=== PATIENT | male | born 1955 | race American Indian/Alaskan Native ===

== ENCOUNTER 2019-01-29 04:37 | Inpatient (IN) | payer BC, OTHER ==
[~2019-01-29 04:37] MED LIST: NORMODYNE IV ONE
[2019-01-29] MEDS ORDERED: NITRO-BID 2% TP ONE (04:50)
[2019-01-29] MEDS ORDERED: MORPHINE IV ONE (04:51)
[2019-01-29] MEDS ORDERED: PEPCID IV ONE (04:52)
[2019-01-29] MEDS ORDERED: ZOFRAN ONE (04:58)
--- NOTE | 2019-01-29 06:00 | XRay Report ---
PROCEDURE: XR CHEST 1V AP TECHNIQUE: A portable semiupright view of the chest was obtained. HISTORY: Chest Pain COMPARISONS: None FINDINGS: The heart is mildly enlarged. The lungs are not congested. There are no infiltrates or effusions. The skeletal structures are well-maintained. IMPRESSION: Cardiomegaly. No acute process in the chest.. This document is electronically signed by Kevin Rai MD., January 29 2019 05:58:07 AM ET
[2019-01-29 06:07] LABS: Basophils % (Auto) 0.4 % (0.0-1.8); Eosinophils # (Auto) 0.1 K/mm3 (0.0-0.4); Eosinophils % (Auto) 1.4 % (0.0-4.3); Hematocrit 38.7 % (35.5-45.6); Lymphocytes # (Auto) 1.2 K/mm3 (1.2-5.4); Lymphocytes % (Auto) 15.5 % (13.4-35.0); Mean Corpuscular HGB Conc 34 % (32-34); Mean Corpuscular Volume 81 fl (84-94); Monocytes # (Auto) 0.8 K/mm3 (0.0-0.8); Platelet Count 188 K/mm3 (140-440); Red Blood Count 4.79 M/mm3 (3.65-5.03); Red Cell Distribution Width 14.7 % (13.2-15.2)
[2019-01-29] MEDS ORDERED: NACL 0.9% 1000 ML 1,000 ML IV ONE (06:27)
[2019-01-29] MEDS ORDERED: ZOFRAN IV ONE ×2 (06:27→07:42)
[2019-01-29 06:29] LABS: Calcium 9.2 mg/dL (8.4-10.2)
[2019-01-29] MEDS ORDERED: BABY ASPIRIN PO ONE ×2 (06:30→07:47)
--- NOTE | 2019-01-29 06:30 | Emergency Department Report ---
ED General Adult HPI - General Chief complaint: Chest Pain Stated complaint: CHEST PAIN Time Seen by Provider: 01/29/19 06:18 Source: patient, EMS Mode of arrival: Stretcher Limitations: No Limitations - History of Present Illness Initial comments: Patient complains of left-sided nonradiating chest pain that awakened him from his sleep at 3 AM this morning. Patient also complains of nausea and vomiting. -: Sudden Location: chest Radiation: non-radiation Severity scale (0 -10): 6 Quality: dull Consistency: constant Improves with: none Worsens with: none Associated Symptoms: nausea/vomiting Treatments Prior to Arrival: none - Related Data Previous Rx's Medication Instructions Recorded Last Taken Type Ciprofloxacin HCl [Ciprofloxacin 500 mg PO BID #20 tablet 05/23/15 Unknown Rx TAB] metroNIDAZOLE [Flagyl] 500 mg PO BID #20 tablet 05/23/15 Unknown Rx oxyCODONE /ACETAMINOPHEN [Percocet 1 tab PO Q6HR PRN #20 tablet 05/23/15 Unknown Rx 5/325 mg] Allergies Allergy/AdvReac Type Severity Reaction Status Date / Time No Known Allergies Allergy Unverified 05/23/15 16:14 ED Review of Systems ROS: Stated complaint: CHEST PAIN Other details as noted in HPI Comment: All other systems reviewed and negative Constitutional: denies: chills, fever Eyes: denies: eye pain, eye discharge, vision change ENT: denies: ear pain, throat pain Respiratory: denies: cough, shortness of breath, wheezing Cardiovascular: chest pain. denies: palpitations Endocrine: no symptoms reported Gastrointestinal: nausea, vomiting. denies: abdominal pain, diarrhea Genitourinary: denies: urgency, dysuria Musculoskeletal: denies: back pain, joint swelling, arthralgia Skin: denies: rash, lesions Neurological: denies: headache, weakness, paresthesias Psychiatric: denies: anxiety, depression Hematological/Lymphatic: denies: easy bleeding, easy bruising ED Past Medical Hx - Past Medical History Previous Medical History?: Yes Hx Hypertension: Yes - Surgical History Past Surgical History?: Yes Additional Surgical History: colonoscopy 05/22/15 - Social History Smoking Status: Never Smoker Substance Use Type: None - Medications Home Medications: Home Medications Medication Instructions Recorded Confirmed Last Taken Type Ciprofloxacin HCl [Ciprofloxacin 500 mg PO BID #20 tablet 05/23/15 Unknown Rx TAB] metroNIDAZOLE [Flagyl] 500 mg PO BID #20 tablet 05/23/15 Unknown Rx oxyCODONE /ACETAMINOPHEN [Percocet 1 tab PO Q6HR PRN #20 tablet 05/23/15 Un known Rx 5/325 mg] ED Physical Exam - General Limitations: No Limitations General appearance: alert, in no apparent distress - Head Head exam: Present: atraumatic, normocephalic - Eye Eye exam: Present: normal appearance, PERRL, EOMI - ENT ENT exam: Present: mucous membranes dry - Neck Neck exam: Present: normal inspection - Respiratory Respiratory exam: Present: normal lung sounds bilaterally. Absent: respiratory distress, wheezes, rales, rhonchi - Cardiovascular Cardiovascular Exam: Present: regular rate, normal rhythm. Absent: systolic murmur, diastolic murmur, rubs, gallop - GI/Abdominal GI/Abdominal exam: Present: soft, normal bowel sounds. Absent: distended, tenderness - Rectal Rectal exam: Present: deferred - Extremities Exam Extremities exam: Present: normal inspection - Back Exam Back exam: Present: normal inspection - Neurological Exam Neurological exam: Present: alert, oriented X3, CN II-XII intact. Absent: motor sensory deficit - Psychiatric Psychiatric exam: Present: normal affect, normal mood - Skin Skin exam: Present: warm, dry, intact, normal color. Absent: rash ED Course Vital Signs 01/29/19 01/29/19 01/29/19 04:43 04:50 05:35 Temperature 98.0 F 98.0 F Pulse Rate 78 78 Respiratory 15 15 13 Rate Blood Pressure 118/79 Blood Pressure 118/79 [Right] O2 Sat by Pulse 99 100 98 Oximetry 01/29/19 01/29/19 01/29/19 06:27 07:00 07:16 Temperature Pulse Rate 70 73 Respiratory 15 15 13 Rate Blood Pressure 133/100 137/91 Blood Pressure 123/95 [Right] O2 Sat by Pulse 98 98 98 Oximetry ED Medical Decision Making - Lab Data Result diagrams: 01/29/19 05:48 01/29/19 05:48 Lab Results 01/29/19 01/29/19 01/29/19 Range/Units 05:48 05:48 05:48 WBC 7.5 (4.5-11.0) K/mm3 RBC 4.79 (3.65-5.03) M/mm3 Hgb 13.0 (11.8-15.2) gm/dl Hct 38.7 (35.5-45.6) % MCV 81 L (84-94) fl MCH 27 L (28-32) pg MCHC 34 (32-34) % RDW 14.7 (13.2-15.2) % Plt Count 188 (140-440) K/mm3 Lymph % (Auto) 15.5 (13.4-35.0) % [place] % (Auto) 10.0 H (0.0-7.3) % Eos % (Auto) 1.4 (0.0-4.3) % Baso % (Auto) 0.4 (0.0-1.8) % Lymph # 1.2 (1.2-5.4) K/mm3 [place] # 0.8 (0.0-0.8) K/mm3 Eos # 0.1 (0.0-0.4) K/mm3 Baso # 0.0 (0.0-0.1) K/mm3 Seg Neutrophils % 72.7 H (40.0-70.0) % Seg Neutrophils # 5.5 (1.8-7.7) K/mm3 Sodium 140 (137-145) mmol/L Potassium 3.5 L (3.6-5.0) mmol/L Chloride 103.7 (98-107) mmol/L Carbon Dioxide 24 (22-30) mmol/L Anion Gap 16 mmol/L BUN 16 (9-20) mg/dL Creatinine 1.5 (0.8-1.5) mg/dL Estimated GFR 57 ml/min BUN/Creatinine Ratio 11 % Glucose 141 H (75-100) mg/dL Calcium 9.2 (8.4-10.2) mg/dL Troponin T 0.042 H (0.00-0.029) ng/mL NT-Pro-B Natriuret Pep 139.7 (0-900) pg/mL Triglycerides 83 (2-149) mg/dL Cholesterol 154 (50-199) mg/dL LDL Cholesterol Direct 114 (50-130) mg/dL HDL Cholesterol 41 (40-59) mg/dL Cholesterol/HDL Ratio 3.75 % 01/29/19 01/29/19 Range/Units 06:56 06:56 WBC (4.5-11.0) K/mm3 RBC (3.65-5.03) M/mm3 Hgb 12.6 (11.8-15.2) gm/dl Hct 38.0 (35.5-45.6) % MCV (84-94) fl MCH (28-32) pg MCHC (32-34) % RDW (13.2-15.2) % Plt Count 191 (140-440) K/mm3 Lymph % (Auto) (13.4-35.0) % [place] % (Auto) (0.0-7.3) % Eos % (Auto) (0.0-4.3) % Baso % (Auto) (0.0-1.8) % Lymph # (1.2-5.4) K/mm3 [place] # (0.0-0.8) K/mm3 Eos # (0.0-0.4) K/mm3 Baso # (0.0-0.1) K/mm3 Seg Neutrophils % (40.0-70.0) % Seg Neutrophils # (1.8-7.7) K/mm3 Sodium (137-145) mmol/L Potassium (3.6-5.0) mmol/L Chloride (98-107) mmol/L Carbon Dioxide (22-30) mmol/L Anion Gap mmol/L BUN (9-20) mg/dL Creatinine (0.8-1.5) mg/dL Estimated GFR ml/min BUN/Creatinine Ratio % Glucose (75-100) mg/dL Calcium (8.4-10.2) mg/dL Troponin T (0.00-0.029) ng/mL NT-Pro-B Natriuret Pep 109.3 (0-900) pg/mL Triglycerides (2-149) mg/dL Cholesterol (50-199) mg/dL LDL Cholesterol Direct (50-130) mg/dL HDL Cholesterol (40-59) mg/dL Cholesterol/HDL Ratio % - EKG Data -: EKG Interpreted by Me EKG shows normal: sinus rhythm Rate: normal - Radiology Data Radiology results: report reviewed - Medical Decision Making Condition initially had a Nitropatch on IV nitroglycerin and heparin started Discussed results and plan with patient Critical Care Time: Yes Critical care time in (mins) excluding proc time.: 35 Critical care attestation.: If time is entered above; I have spent that time in minutes in the direct care of this critically ill patient, excluding procedure time. ED Disposition Clinical Impression: Chest pain, NSTEMI (non-ST elevated myocardial infarction) Disposition: DC-09 OP ADMIT IP TO THIS HOSP Is pt being admited?: No Does the pt Need Aspirin: Yes Condition: Fair Instructions: Chest Pain (ED) Referrals: CARLIN MENDOZA MD [Primary Care Provider] - 3-5 Days
[2019-01-29] MEDS ORDERED: NITROSTAT SL PRN ×2 (06:38→12:03)
[2019-01-29] MEDS ORDERED: TRIDIL DRIP 50MG/250ML 50 MG/250 ML BOTTLE IV SCH (07:00)
[2019-01-29] MEDS ORDERED: HEPARIN/ 0.45% NACL-25,000 UNIT/500 ML 25,000 UNIT/500 ML BAG IV SCH (07:00)
[2019-01-29 07:05] LABS: Chol/HDL Ratio 3.75 %
[2019-01-29 07:39] LABS: Hemoglobin 12.6 gm/dl (11.8-15.2)
[2019-01-29] MEDS ORDERED: PROTONIX IV ONE ×2 (07:39→07:42)
[2019-01-29 07:45] LABS: INR 1.04 (0.87-1.13)
[2019-01-29 07:46] LABS: Partial Thromboplastin Time 27.5 Sec. (24.2-36.6)
[2019-01-29] MEDS ORDERED: TYLENOL PO PRN (08:38)
[2019-01-29] MEDS ORDERED: REGLAN IV PRN (08:38)
[2019-01-29] MEDS: KCL 10MEQ/100ML 10 MEQ/100 ML BAG IV SCH ×2 (09:08→13:18)
[2019-01-29] MEDS: PROTONIX IV SCH ×2 (10:59→23:24)
[2019-01-29] MEDS: ZOFRAN IV PRN ×2 (11:00→21:58)
--- NOTE | 2019-01-29 12:02 | Progress Note ---
Assessment and Plan Assessment and plan: Patient is a 63 yo man with a history of hypertension, dyslipidemia and elevated liver enzymes in the past who was admitted for chest pains with positive troponin. He was seen by Cardiology and scheduled for Cardiac cath on Wednesday but overnight he developed hypoxia, severe SOB and worsening CP. CTA chest showed Type B Aortic Dissection. pCXR no acute findings EKG reviewed -Chest pains with Aortic Dissection: see below -Dyslipidemia, LDL 114: treat with statin -Hypokalmia: replete and monitor closely -Epigastric abd/N/V, suspected related to CP vs Gastritis/GERD: treat with PPI -Suspected ARF, due to vasomotor nephropathy, Cr is 1.5 now, but in 2014 Cr was 0.8 (05/23/15): treat with gentle hydration and monitor bmp closely -History of elevated transaminitis: check hepatic panel -DVT/GI prophylaxis reviewed -Home rec reviewed with patient not accurate in EMR, pt is on norvasc, coreg, simvastatin 01/30/19: Overnight was very eventful as patient became severely SOB with worsening CP. CODE MET was called around 3am. 02 SAT IN THE 80'S. 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 Cardiomegaly. Pulmonary vascular congestion with small right-sided effusion. Small pericardial effusion. No evidence of pulmonary embolus. The findings were discussed with Dr. Boo at 5:51 AM on 01/30/2019 Disposition: [facility] CONTACTED AT 7:16 A.M AND CARDIO THORACIC SURGEON DR. SPENCE SAID THAT CASE WILL BE BETTER MANAGED AT [facility]. DR. MONTGOMERY OF [facility] WAS CONTACTED AT 7.38A.M AND ACCEPTED TRANSFER TO [facility]. PATIENT AWAITING TRANSFER D/W attending for ICU at [place] D/w Cardiology currently on Vmask 50%, pulse ox 95% Someone stopped my iv labetalol order, will transfer to ICU on Labetalol drip Disposition to [facility], awaiting transport. CCT 35 minutes History Interval history: Patient was seen and examined. Follow-up on current diagnosis Chest pains/n/v. Overnight was very eventful as patient became severely SOB with worsening CP. CODE MET was called around 3am. Soft Water Mechanic evaluated and ordered d-dimer and CTA chest which should the following: CTA chest IMPRESSION: Dm type B aortic dissection beginning just beyond the origin of the left subclavian artery and extending to the mid thoracic aorta level.. Cardiomegaly. Pulmonary vascular congestion with small right-sided effusion. Small pericardial effusion. No evidence of pulmonary embolus. The findings were discussed with Dr. Boo at 5:51 AM on 01/30/2019. Patient went to Cardiac laborer wood preserving plant this morning and I went down to bring back. Hospitalist Physical - Physical exam Narrative exam: Gen: WDWN, NAD, Awake, Alert, Orientated HEENT: NCAT, EOMI, PERRL, OP Clear Neck: supple, no adenopathy, no thyromegaly, no JVD CVS/Heart: RRR, normal S1S2, pulses present bilaterally Chest/Lungs: CTA B, Symmetrical chest expansion, good air entry bilaterally GI/Abdomen: soft, NTND, good bowel sounds, no guarding or rebound /Bladder: no suprapubic tenderness, no CVA or paraspinal tenderness Extermity/Skin: no c/c/e, no obvious rash MSK: FROM x 4 Neuro: CN 2-12 grossly intact, no new focal deficits Psych: calm - Constitutional Vitals: Temp Pulse Resp BP Pulse Ox 98.0 F 84 20 155/101 90 01/29/19 04:50 01/29/19 09:00 01/29/19 09:00 01/29/19 09:00 01/29/19 08:46 Results - Labs CBC & Chem 7: 01/29/19 06:56 01/29/19 05:48 Labs: Laboratory Last Values WBC 7.5 K/mm3 (4.5-11.0) 01/29/19 05:48 RBC 4.79 M/mm3 (3.65-5.03) 01/29/19 05:48 Hgb 12.6 gm/dl (11.8-15.2) 01/29/19 06:56 Hct 38.0 % (35.5-45.6) 01/29/19 06:56 MCV 81 fl (84-94) L 01/29/19 05:48 MCH 27 pg (28-32) L 01/29/19 05:48 MCHC 34 % (32-34) 01/29/19 05:48 RDW 14.7 % (13.2-15.2) 01/29/19 05:48 Plt Count 191 K/mm3 (140-440) 01/29/19 06:56 Lymph % (Auto) 15.5 % (13.4-35.0) 01/29/19 05:48 [place] % (Auto) 10.0 % (0.0-7.3) H 01/29/19 05:48 Eos % (Auto) 1.4 % (0.0-4.3) 01/29/19 05:48 Baso % (Auto) 0.4 % (0.0-1.8) 01/29/19 05:48 Lymph # 1.2 K/mm3 (1.2-5.4) 01/29/19 05:48 [place] # 0.8 K/mm3 (0.0-0.8) 01/29/19 05:48 Eos # 0.1 K/mm3 (0.0-0.4) 01/29/19 05:48 Baso # 0.0 K/mm3 (0.0-0.1) 01/29/19 05:48 Seg Neutrophils % 72.7 % (40.0-70.0) H 01/29/19 05:48 Seg Neutrophils # 5.5 K/mm3 (1.8-7.7) 01/29/19 05:48 PT 14.2 Sec. (12.2-14.9) 01/29/19 06:56 INR 1.04 (0.87-1.13) 01/29/19 06:56 APTT 27.5 Sec. (24.2-36.6) 01/29/19 06:56 Sodium 140 mmol/L (137-145) 01/29/19 05:48 Potassium 3.5 mmol/L (3.6-5.0) L 01/29/19 05:48 Chloride 103.7 mmol/L (98-107) 01/29/19 05:48 Carbon Dioxide 24 mmol/L (22-30) 01/29/19 05:48 Anion Gap 16 mmol/L 01/29/19 05:48 BUN 16 mg/dL (9-20) 01/29/19 05:48 Creatinine 1.5 mg/dL (0.8-1.5) 01/29/19 05:48 Estimated GFR 57 ml/min 01/29/19 05:48 BUN/Creatinine Ratio 11 % 01/29/19 05:48 Glucose 141 mg/dL (75-100) H 01/29/19 05:48 Calcium 9.2 mg/dL (8.4-10.2) 01/29/19 05:48 Troponin T 0.042 ng/mL (0.00-0.029) H 01/29/19 05:48 NT-Pro-B Natriuret Pep 109.3 pg/mL (0-900) 01/29/19 06:56 Triglycerides 83 mg/dL (2-149) 01/29/19 05:48 Cholesterol 154 mg/dL (50-199) 01/29/19 05:48 LDL Cholesterol Direct 114 mg/dL (50-130) 01/29/19 05:48 HDL Cholesterol 41 mg/dL (40-59) 01/29/19 05:48 Cholesterol/HDL Ratio 3.75 % 01/29/19 05:48
--- NOTE | 2019-01-29 12:10 | History and Physical Report ---
History of Present Illness Date of examination: 01/29/19 Date of admission: 01/29/19 09:19 Chief complaint: Chest pains History of present illness: Patient is a 63 yo man with a history of hypertension and elevated liver enzymes in the past who presents to PSYCHIATRIC ED with Nonradiating dull constant moderately severe chest pains that woke him up this morning at 3am without aggravating or relieving factors associated with N/V. He denies SOB, cough, fevers, chills. He does have epigastric abd pains. He is being admitted for chest pains with positive troponins. PMH: as hpi PSH: c-scopy procedure for rectal bleed SH: no tob/etoh/illegal drug FH: hypertension ROS: Constitutional: denies: fever ENT: denies: throat or neck pain Respiratory: denies: cough, shortness of breath Cardiovascular: + chest pain Endocrine: denies unexplained weight loss or gain Gastrointestinal: +abdominal pain, nausea Genitourinary: denies: dysuria Rectal: denies no incontinence, no bleeding, no itching, no discharge Musculoskeletal: denies swelling, myaglia, muscle weakness Skin: denies: rash Neurological: denies: headache Hematological/Lymphatic: denies: easy bleeding or easy bruising Allergic/Immunologic: no urticaria, no allergic rhinitis, no anaphylaxis Psych: denies sadness or hopelessness, SI/HI Medications and Allergies Allergies Allergy/AdvReac Type Severity Reaction Status Date / Time No Known Allergies Allergy Unverified 05/23/15 16:14 Home Medications Medication Instructions Recorded Confirmed Last Taken Type amLODIPine [Norvasc] 10 mg PO DAILY 01/29/19 01/29/19 01/28/19 History Active Meds: Active Medications Acetaminophen (Tylenol) 650 mg PO Q6H PRN PRN Reason: Non Cardiac Pain or Temp>100.5 Aspirin (Baby Aspirin) 81 mg PO QDAY BAUTISTA Atorvastatin Calcium (Lipitor) 80 mg PO QHS BAUTISTA Carvedilol (Coreg) 6.25 mg PO BID BAUTISTA Heparin Sodium/Sodium Chloride (Heparin/ 0.45% Nacl-25,000 Unit/500 Ml) 25,000 unit in 500 mls @ 20 mls/hr IV TITRATE BAUTISTA; Protocol Last Admin: 01/29/19 07:19 Dose: 1,000 units/hr, 20 mls/hr Documented by: Metoclopramide HCl (Reglan) 10 mg IV Q8H PRN PRN Reason: Nausea And Vomiting Nitroglycerin (Nitrostat) 0.4 mg SL .Q5MIN PRN PRN Reason: Chest Pain Ondansetron HCl (Zofran) 4 mg IV Q4H PRN PRN Reason: Nausea And Vomiting Last Admin: 01/29/19 11:00 Dose: 4 mg Documented by: Pantoprazole Sodium (Protonix) 40 mg IV BID BAUTISTA Last Admin: 01/29/19 10:59 Dose: 40 mg Documented by: Exam - Physical Exam Narrative exam: Gen: WDWN, NAD, Awake, Alert, Orientated HEENT: NCAT, EOMI, PERRL, OP Clear Neck: supple, no adenopathy, no thyromegaly, no JVD CVS/Heart: RRR, normal S1S2, pulses present bilaterally Chest/Lungs: CTA B, Symmetrical chest expansion, good air entry bilaterally GI/Abdomen: soft, epigastic tenderness, good bowel sounds, no guarding or rebound /Bladder: no suprapubic tenderness, no CVA or paraspinal tenderness Extermity/Skin: no c/c/e, no obvious rash MSK: FROM x 4 Neuro: CN 2-12 grossly intact, no new focal deficits Psych: calm - Constitutional Vitals: Temp Pulse Resp BP Pulse Ox 98.0 F 84 20 155/101 90 01/29/19 04:50 01/29/19 09:00 01/29/19 09:00 01/29/19 09:00 01/29/19 08:46 Results - Labs CBC & Chem 7: 01/29/19 06:56 01/29/19 05:48 Labs: Abnormal lab results 01/29/19 01/29/19 Range/Units 05:48 05:48 MCV 81 L (84-94) fl MCH 27 L (28-32) pg [place] % (Auto) 10.0 H (0.0-7.3) % Seg Neutrophils % 72.7 H (40.0-70.0) % Potassium 3.5 L (3.6-5.0) mmol/L Glucose 141 H (75-100) mg/dL Troponin T 0.042 H (0.00-0.029) ng/mL Assessment and Plan Patient is a 63 yo man with a history of hypertension and elevated liver enzymes in the past who presents to PSYCHIATRIC ED with Nonradiating dull constant moderately severe chest pains that woke him up this morning at 3am without aggravating or relieving factors associated with N/V. He denies SOB, cough, fevers, chills. He does have epigastric abd pains. He is being admitted for chest pains with positive troponins. pCXR no acute findings EKG reviewed -Chest pains, suspected ACS: treat with iv heparin drip, the tridil drip is making quesy, add asa, continue his home coreg and add statin with prn NTG, keep NPO due to ongoing chest pains, await Cardiology eval, order ECHO -Dyslipidemia, LDL 114: treat with statin, increased dose -Hypokalmia: replete and monitor closely -Epigastric abd/N/V, suspected related to CP vs Gastritis/GERD: treat with PPI -Suspected ARF, due to vasomotor nephropathy, Cr is 1.5 now, but in 2014 Cr was 0.8: treat with gentle hydration and monitor bmp closely -History of elevated transaminitis: check hepatic panel -DVT/GI prophylaxis reviewed -Home rec reviewed with patient not accurate in EMR, pt is on norvasc, coreg, simvastatin
[2019-01-29 13:13] LABS: Creatine Kinase MB 15.7 ng/mL (0.0-4.0)
[2019-01-29 13:18] LABS: Alanine Aminotransferase 19 units/L (7-56)
[2019-01-29 13:20] LABS: Bilirubin,Direct < 0.2 mg/dL (0-0.2)
[2019-01-29] MEDS ORDERED: COREG PO SCH ×2 (14:00→22:00)
[2019-01-29] MEDS ORDERED: DILAUDID IM ONE (14:15)
--- NOTE | 2019-01-29 16:13 | Consultation ---
History of Present Illness Consult date: 01/29/19 Consult reason: abnormal cardiac enzymes, chest pain, elevated troponin, hypertension History of present illness: 63-year-old overweight pleasant -[place] gentleman with a history of hypertension hypercholesterolemia woke up with severe sub sternal and bilateral upper pressure-like chest pains around 3 AM today. It was not radiating. However it was associated with the nausea vomiting. No history of shortness of breath, palpitations, presyncope or syncope. No history of diabetes mellitus. His CPK was 403 with the MB of 16 and CK MB B index of 3.8. His first troponin was 0.042 to and repeat troponin is normal. He is being treated for acute non- ST elevation myocardial infarction. He had an echocardiogram today. No history of CAD or myocardial infarction in the past. No H/O of any surgery in the past . Not a smoker and not an alcoholic no history of drug abuse. Family history is negative for premature coronary artery disease. His potassium was 3.5 with BUN of 16 and creatinine of 1.5 (has CKD). At the time of examination he doesn't have any symptoms. He is on intravenous heparin and also has received aspirin. Past History Past Medical History: hypertension, hyperlipidemia Past Surgical History: No surgical history Social history: denies: smoking, alcohol abuse, prescription drug abuse, IV drug use Family history: no significant family history Medications and Allergies Allergies Allergy/AdvReac Type Severity Reaction Status Date / Time No Known Allergies Allergy Unverified 05/23/15 16:14 Home Medications Medication Instructions Recorded Confirmed Last Taken Type amLODIPine [Norvasc] 10 mg PO DAILY 01/29/19 01/29/19 01/28/19 History Active Meds: Active Medications Acetaminophen (Tylenol) 650 mg PO Q6H PRN PRN Reason: Non Cardiac Pain or Temp>100.5 Aspirin (Baby Aspirin) 81 mg PO QDAY [facility] Atorvastatin Calcium (Lipitor) 80 mg PO QHS [facility] Carvedilol (Coreg) 6.25 mg PO BID [facility] Last Admin: 01/29/19 13:21 Dose: 6.25 mg Documented by: Heparin Sodium/Sodium Chloride (Heparin/ 0.45% Nacl-25,000 Unit/500 Ml) 25,000 unit in 500 mls @ 20 mls/hr IV TITRATE BAUTISTA; Protocol Last Admin: 01/29/19 07:19 Dose: 1,000 units/hr, 20 mls/hr Documented by: Metoclopramide HCl (Reglan) 10 mg IV Q8H PRN PRN Reason: Nausea And Vomiting Nitroglycerin (Nitrostat) 0.4 mg SL .Q5MIN PRN PRN Reason: Chest Pain Ondansetron HCl (Zofran) 4 mg IV Q4H PRN PRN Reason: Nausea And Vomiting Last Admin: 01/29/19 11:00 Dose: 4 mg Documented by: Pantoprazole Sodium (Protonix) 40 mg IV BID [facility] Last Admin: 01/29/19 10:59 Dose: 40 mg Documented by: Review of Systems Ears, nose, mouth and throat: no ear discharge, no epistaxis Cardiovascular: chest pain Respiratory: no cough with sputum, no shortness of breath Gastrointestinal: nausea, vomiting, no abdominal pain Genitourinary Male: no dysuria, no incontinence Rectal: no pain Musculoskeletal: no neck stiffness, no neck pain Integumentary: no rash Neurological: no weakness, no parathesias, no seizures, no syncope Psychiatric: no anxiety, no memory loss Endocrine: no cold intolerance, no heat intolerance, no polydipsia, no polyuria Hematologic/Lymphatic: no easy bruising, no easy bleeding Allergic/Immunologic: no urticaria, no wheezing Physical Examination Vital Signs Temp Pulse Resp BP Pulse Ox 98.0 F 78 15 118/79 99 01/29/19 04:43 01/29/19 04:43 01/29/19 04:43 01/29/19 04:43 01/29/19 04:43 General appearance: no acute distress, other (Overweight) HEENT: Positive: PERRL, EOMI, Mucus Membranes Moist Neck: Positive: neck supple, trachea midline Cardiac: Positive: Reg Rate and Rhythm (Loud S2), Other Lungs: Positive: clear to auscultation, Normal Breath Sounds Neuro: Positive: Grossly Intact Abdomen: Positive: Unremarkable, Soft, Active Bowel Sounds Male genitourinary: Negative: deferred Skin: Negative: Rash Musculoskeletal: No Fluid Collection, No Pain, Normal Range of Motion Extremities: Present: normal, upper extr. pulses, lower extr. pulses Results 01/29/19 06:56 01/29/19 05:48 Cardiac Enzymes 01/29/19 01/29/19 Range/Units 12:21 12:21 AST 26 (5-40) units/L CK-MB (CK-2) 15.7 H (0.0-4.0) ng/mL Coagulation 01/29/19 Range/Units 06:56 PT 14.2 (12.2-14.9) Sec. INR 1.04 (0.87-1.13) APTT 27.5 (24.2-36.6) Sec. Lipids 01/29/19 Range/Units 05:48 Triglycerides 83 (2-149) mg/dL Cholesterol 154 (50-199) mg/dL HDL Cholesterol 41 (40-59) mg/dL Cholesterol/HDL Ratio 3.75 % CBC 01/29/19 01/29/19 Range/Units 05:48 06:56 WBC 7.5 (4.5-11.0) K/mm3 RBC 4.79 (3.65-5.03) M/mm3 Hgb 13.0 12.6 (11.8-15.2) gm/dl Hct 38.7 38.0 (35.5-45.6) % Plt Count 188 191 (140-440) K/mm3 Lymph # 1.2 (1.2-5.4) K/mm3 [place] # 0.8 (0.0-0.8) K/mm3 Eos # 0.1 (0.0-0.4) K/mm3 Baso # 0.0 (0.0-0.1) K/mm3 Comprehensive Metabolic Panel 01/29/19 01/29/19 Range/Units 05:48 12:21 Sodium 140 (137-145) mmol/L Potassium 3.5 L (3.6-5.0) mmol/L Chloride 103.7 (98-107) mmol/L Carbon Dioxide 24 (22-30) mmol/L BUN 16 (9-20) mg/dL Creatinine 1.5 (0.8-1.5) mg/dL Glucose 141 H (75-100) mg/dL Calcium 9.2 (8.4-10.2) mg/dL Direct Bilirubin < 0.2 (0-0.2) mg/dL Indirect Bilirubin 0.4 mg/dL AST 26 (5-40) units/L ALT 19 (7-56) units/L Alkaline Phosphatase 50 (35-129) units/L Total Protein 7.1 (6.3-8.2) g/dL Albumin 4.0 (3.9-5) g/dL - Imaging and Cardiology Echo: pending EKG: report reviewed, image reviewed - EKG Interpretation EKG: sinus rhythm EKG shows: sinus rhythm EKG interpretations - Telemetry EKG Rhythm: Sinus Rhythm - EKG Sinus rhythms and dysrhythmias: sinus rhythm Chamber hypertrophy or enlargement: left atrial enlargement, left ventricular hypertro Assessment and Plan We'll place him on IV hydration and follow-up basic metabolic panel in a.m. Will follow-up echocardiogram. Patient needs a left heart catheterization and coronary angiography and possible coronary intervention as needed.The benefits and risks of the procedures were explained in detail to the patient. Cardiac cath is tentatively scheduled for tomorrow - if his creatinine level is acceptable.Would add beta allyson. - Patient Problems (1) Overweight (BMI 25.0-29.9) Current Visit: Yes Status: Chronic (2) Hypertension Current Visit: Yes Status: Chronic (3) Hypercholesteremia Current Visit: Yes Status: Chronic (4) Chest pain Current Visit: Yes Status: Acute (5) NSTEMI (non-ST elevated myocardial infarction) Current Visit: Yes Status: Acute (6) CKD (chronic kidney disease) stage 3, GFR 30-59 ml/min Current Visit: Yes Status: Chronic
[2019-01-29] MEDS ORDERED: NACL 0.9% 1000 ML 1,000 ML IV SCH (17:00)
[2019-01-29] MEDS ORDERED: K-DUR PO SCH (17:00)
[2019-01-29] MEDS ORDERED: APRESOLINE IV PRN (18:22)
[2019-01-29] MEDS ORDERED: NORMODYNE IV PRN (18:22)
[2019-01-29] MEDS ORDERED: NORVASC PO SCH (19:00)
[2019-01-29 19:58] LABS: Creatine Kinase MB 25.4 ng/mL (0.0-4.0)
[2019-01-29] MEDS ORDERED: ALUM-MAG HYDROX-SIMETH 200-200-20MG/5ML PO PRN (21:43)
[2019-01-30] MEDS ORDERED: MORPHINE IV PRN (02:49)
[2019-01-30] MEDS ORDERED: ATIVAN IV ONE (02:50)
--- NOTE | 2019-01-30 05:55 | Cat Scan Report ---
PROCEDURE: CT ANGIO CHEST TECHNIQUE: A CT angiogram was obtained of the chest following the intravenous injection of iodinated contrast. Rotational, sagittal, and coronal MIP reconstructions were reviewed. HISTORY: DYSPNEA WITH HIGH D-DIMER COMPARISONS: Chest x-ray 01/29/2019 FINDINGS: There is a [place] type B aortic dissection beginning just beyond the origin of the left subclavian artery. The ascending aorta is not involved. The ascending aortic diameter is 5.1 cm. At the same lev el the descending thoracic aorta measures 4.8 cm in diameter. Both the true and false lumens opacify with contrast. The dissection flap extends to the mid thoracic aorta level. It is not seen distal to this level. There is no involvement of the great vessels in the neck. The heart is mildly enlarged. T here is a small pericardial effusion. The lungs appear congested. There is no evidence of pulmonary e mbolus. There is a small right-sided effusion with mild atelectasis in the right lung base. In the up per abdomen the adrenal glands appear normal. The skeletal structures reveal multilevel disc degenera tion in the dorsal spine. IMPRESSION: [place] type B aortic dissection beginning just beyond the origin of the left subclavian artery and extending to the mid thoracic aorta level.. Cardiomegaly. Pulmonary vascular congestion with small right-sided effusion. Small pericardial effusion. No evidence of pulmonary embolus. The findings were discussed with Dr. oBo at 5:51 AM on 01/30/2019 This document is electronically signed by Kevin Rai MD., January 30 2019 05:52:37 AM ET
--- NOTE | 2019-01-30 06:54 | Event Note ---
Date: 01/30/19 COD MET CALLED ON PATIENT WHO WAS HAVING SEVERE RESPIRATORY DISTRESS WITH CHEST PAIN . VITAL SIGN SHOWED SBP OF ABOVE 175/106 WITH 02 SAT IN THE 80'S PATIENT WAS GIVEN I.V LABETALOL 20MG FOR HIGH BLOOD PRESSURE AND 12 LEAD EKG DONE AND DID NOT SHOW ANY STEMI. ABG SHOWED PH OF 7.33 AND P02 OF 75 WITH PCO2 OF 48.9 ON FIO2 OF 50%. STAT D- DIMER SHOWED HIGH VALUE ABOVE 1000. CTA CHEST SHOWED TYPE B [place]ORA DISECTION. PATIENT'S HEPARIN WAS STOPPED IMMEDIETLY AND [facility] CONTACTED AT 7:16 A.M AND THE CARDIOTHORACIC SURGEON DR. SPENCE SAID THAT THE CASE WILL BE BETTER MANAGED AT [facility]. DR. MONTGOMERY OF [facility] WAS CONTACTED AT 7.38A.M AND ACCEPTED TRANSFER TO [facility]. PATIENT REMAINED STABLE WHILE AWAITING TRANSFER AND CASE HANDED OVER TO THE MORNING DOCTOR (DR. PAUL)
--- NOTE | 2019-01-30 08:10 | Discharge Summary ---
Providers - Providers Date of Admission: 01/29/19 09:19 Date of discharge: 01/30/19 Attending physician: CINDY PAUL 01/29/19 08:43 Consult to Physician [CONS] Routine Comment: Consulting Provider: FORREST GERMAN Physician Instructions: Reason For Exam: Chest pains Primary care physician: CARLIN MENDOZA Hospitalization Condition: Fair Hospital course: Patient is a 63 yo man with a history of hypertension, dyslipidemia and elevated liver enzymes in the past who was admitted for chest pains with positive troponin. He was seen by Cardiology and scheduled for Cardiac cath on Wednesday but overnight he developed hypoxia, severe SOB and worsening CP. CTA chest showed Type B Aortic Dissection. pCXR no acute findings EKG reviewed -Chest pains with Aortic Dissection: see below -Dyslipidemia, LDL 114: treat with statin -Hypokalmia: replete and monitor closely -Epigastric abd/N/V, suspected related to CP vs Gastritis/GERD: treat with PPI -Suspected ARF, due to vasomotor nephropathy, Cr is 1.5 now, but in 2014 Cr was 0.8 (05/23/15): treat with gentle hydration and monitor bmp closely -History of elevated transaminitis: check hepatic panel -DVT/GI prophylaxis reviewed -Home rec reviewed with patient not accurate in EMR, pt is on norvasc, coreg, simvastatin 01/30/19: Overnight was very eventful as patient became severely SOB with worsening CP. CODE MET was called around 3am. 02 SAT IN THE 80'S. Digital Marketing Analyst evaluated and ordered d-dimer and CTA chest which should the following: CTA chest IMPRESSION: [place] type B aortic dissection beginning just beyond the origin of the left subclavian artery and extending to the mid thoracic aorta level.. Cardiomegaly. Pulmonary vascular congestion with small right-sided effusion. Small pericardial effusion. No evidence of pulmonary embolus. The findings were discussed with Dr. Boo at 5:51 AM on 01/30/2019 Disposition: [facility]: [facility] CONTACTED AT 7:16 A.M AND CARDIO THORACIC SURGEON DR. SPENCE SAID THAT CASE WILL BE BETTER MANAGED AT [facility]. DR. MONTGOMERY OF [facility] WAS CONTACTED AT 7.38A.M AND ACCEPTED TRANSFER TO [facility]. PATIENT AWAITING TRANSFER CCT 35 minutes Disposition: [id number]/TX-[id number] ANOTHER TYPE HLTHCARE Time spent for discharge: 36 minutes Core Measure Documentation - Palliative Care Palliative Care/ Comfort Measures: Not Applicable - Core Measures Any of the following diagnoses?: none - VTE Discharge Requirements Deep Vein Thrombosis/Pulmonary Embolism Present on Admission: No Has pt received <5 days of overlap therapy or INR<2.0: No Anticoagulant overlap therapy prescribed at discharge: No Contraindication No Overlap Therapy order at DC: Not Indicated Exam - Physical Exam Narrative exam: Gen: WDWN, NAD, Awake, Alert, Orientated HEENT: NCAT, EOMI, PERRL, OP Clear Neck: supple, no adenopathy, no thyromegaly, no JVD CVS/Heart: RRR, normal S1S2, pulses present bilaterally Chest/Lungs: CTA B, Symmetrical chest expansion, good air entry bilaterally GI/Abdomen: soft, NTND, good bowel sounds, no guarding or rebound /Bladder: no suprapubic tenderness, no CVA or paraspinal tenderness Extermity/Skin: no c/c/e, no obvious rash MSK: FROM x 4 Neuro: CN 2-12 grossly intact, no new focal deficits Psych: calm - Constitutional Vitals: Temp Pulse Resp BP Pulse Ox 98.4 F 100 H 26 H 175/106 90 01/30/19 06:58 01/30/19 07:50 01/30/19 06:58 01/30/19 07:50 01/30/19 06:58 Plan Activity: other (no strenous activity) Follow up with: CARLIN MENDOZA MD [Primary Care Provider] - 3-5 Days
[2019-01-30] MEDS ORDERED: NORMODYNE IV PRN (08:47)
[2019-01-30] MEDS ORDERED: NORMODYNE 200 MG in D5W 160 ML IV SCH (09:00)
[2019-01-30 09:16] VITALS: BP 181/107
[2019-01-30] MEDS ORDERED: BABY ASPIRIN PO SCH (10:00)
== END 2019-01-30 09:52 | disposition short-term general hospital (02) | DRG 280 ==
LOC: ED 04:37 → 4A 09:19
PROVIDERS: ADMIT Internal Medicine; ATTEND Internal Medicine
PROC: 4A033R1 Measurement of Arterial Saturation, Peripheral, Percutaneous Approach (ICD-10-PCS; principal; 2019-01-30)
DX: I71.01 Dissection of thoracic aorta (principal); I21.4 Non-ST elevation (NSTEMI) myocardial infarction; N17.0 Acute kidney failure with tubular necrosis; K21.9 Gastro-esophageal reflux disease without esophagitis; K29.70 Gastritis, unspecified, without bleeding; E78.5 Hyperlipidemia, unspecified; E87.6 Hypokalemia; E78.00 Pure hypercholesterolemia, unspecified; N18.3 Chronic kidney disease, stage 3 (moderate); I12.9 Hypertensive chronic kidney disease with stage 1 through stage 4 chronic kidney disease, or unspecified chronic kidney disease; E66.3 Overweight; Z68.29 Body mass index [BMI] 29.0-29.9, adult; Z82.49 Family history of ischemic heart disease and other diseases of the circulatory system
CPT/HCPCS: 36415; 36600; 71045; 71275; 80048; 80061; 80076; 82550; 82553; 82803; 82962; 83690; 83880; 84484; 85014; 85018; 85025; 85049; 85379; 85520; 85610; 85730; 93005; 93010; 93306; 94760; 96361; 96365; 96375; G0378; A9270-GY; C9113; J0360; J1170; J1644; J2270; J2405; J3480; J7030; Q9967